=== PATIENT | female | born 1980 | race Caucasian/White ===

== ENCOUNTER 2024-04-04 07:44 | Day surgery (SDC) | payer BC, SELFPAY ==
[2024-04-04] VITALS (13 sets, daily range): BP systolic 93–120; BP diastolic 68–82; PULSE 62–100; RESP 14–16; TEMP 36.2–37; O2SAT 96–100; BMI 25.8
--- OUTSIDE RECORDS SUMMARY | 2024-04-04 07:48 | XMS_ITS | Clinical Summary ---
Author Organization [employer] [facility] [facility] Address [place], [place] [address] Care Team Providers Care Paid Search Marketing Strategist Name Role Phone Suyapa Adorno Primary Care Provider Allergies No known active allergies Medications fluticasone (50 mcg per actuation) nasal solution (FLONASE)Indicat ions:Allergic rhinitis, unspecified seasonality, unspecified trigger Inhale 1 [place] into affected nostril(s) once daily if needed for Rhinitis. 16 g 5 02/14/2024 5:31 PM DEVELOPMENT EXPERT 4 Active albuterol HFA (ProAir HFA) 90 mcg/actuation inhalerIndicatio ns:Bronchitis with bronchospasm Inhale 1-2 Puffs by mouth every 6 hours if needed for Wheezing 1st choice. 1 Each 4 Active albuterol (PROAIR RESPICLICK) 90 mcg/actuation INHALERIndicatio ns:SOB (shortness of breath) Inhale 1 Puff by mouth every 4 hours. 1 Inhaler 0 03/18/20 24 Discontinu ed(*Med complete/R egimen complete/L evel of care change) azithromycin (Zithromax Z-Nikhil) 250 mg tabletIndication s:Bronchitis with bronchospasm Take 500 mg (2 tabs) by mouth on day 1, then 250 mg (1 tab) daily for days 2-5. 6 Tablet 4 04/01/19 25 Discontinu ed(*Med complete/R egimen complete/L evel of care change) Active Problems Problem Noted Date Diagnosed Date Cervical cancer screening 02/23/2024 Overview (02/23/2024): 01/2024 NIL/HPV negative. Plan: Pap/HPV due 01/2029. Myopia of both eyes 09/30/2016 Resolved Problems Problem Noted Date Diagnosed Date Resolved Date Atypical nevi 10/13/2016 01/11/2023 Overview (10/13/2016): 10/12/16 right breast, lentiginous compound nevus moderate atypia, patient chose observation. 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 Johnson) 04/01/2024 Travel 03/18/2024 2:30 PM DEVELOPMENT EXPERT [facility] [address] [place] [address] Ramonita Santana PA Cough 03/18/2024 Travel 02/14/2024 7:55 AM DEVELOPMENT EXPERT Office Visit [facility] [place] [address] [place] [address] Elizabeth Urena NP Physical (fasting) 02/13/2024 Travel 02/07/2024 8:00 AM DEVELOPMENT EXPERT [facility] [address] [place] [address] Trinidad Johnson MD Consult (hemorrhoids) 02/06/2024 Travel 01/31/2024 9:40 AM DEVELOPMENT EXPERT Ancillary [facility] [address] [place] [address] 01/31/2024 Travel from Last 3 Months Immunizations Name Administration Dates Next Due COVID-19 vaccine (Infrafone NTech 30mcg/0.3mL) PF, MDV 04/30/2020,04/09/2020 DTaP 10/31/1984,04/28/1982 Influenza Virus, Unspecified 12/29/2014 Influenza, IIV4 01/03/2024, 3,12/31/2021,2020,12/18/2019,12/10/2018,11/24/2017,0 12/15/2016,01/11/2016,12/18/2015 MMR 09/09/1982,04/28/1982 Polio Virus, Unspecified 10/31/1984,04/28/1982 Td (Age >=7 Years) 05/30/2002 Tdap 09/01/2023,08/20/2013,09/13/2011 Typhoid (oral) 12/06/2017 Family History Medical History Relation Name Comments Cancer-prostate Father Dementia Father Hypertension Father Rheum arthritis Mother Thyroid cancer Mother GI Disease Paternal Aunt IBS Cancer-prostate Paternal Grandfather Heart Disease Paternal Grandfather Hypertension Paternal Grandmother Cancer-breast No Family History Relation Name Status Comments Brother 1 Alive Brother 2 Alive Father Maternal Grandfather Alive Maternal Grandmother Mother Paternal Aunt Paternal Grandfather Paternal Grandmother Sister Alive Social History Tobacco Use Types Packs/Day Years Used Date Smoking Tobacco: Former Cigarettes 0 04/20/2002 - 04/20/2010 Smokeless Tobacco: Never Tobacco Cessation:Counseling Given: Not Answered Alcohol Use Standard Drinks/Week Comments Yes 4 (1 standard drink = 0.6 oz pur e alcohol) PHQ-2 Answer Date Recorded PHQ-2 TOTAL SCORE 0 02/14/2024 Social Connections Answer Date Recorded Do you often feel lonely or isolated from those around you? 0 04/26/2023 Financial Resource Strain Answer Date R ecorded Difficulty of Paying Living Expenses 3 04/26/2023 Difficulty of Paying Living Expenses Not on file 04/26/2023 Food Insecurity Answer Date Recorded Do you worry your food will run out before you are able to buy more? 1 04/26/2023 Transportation Needs Answer Date Record ed Does lack of transportation keep you from medica l appointments? 1 04/26/2023 Does lack of transportation keep you from work, meetings or getting things that you need? 1 04/26/2023 Housing Stability Answer Date Recorded What is your housing situation today? 1 04/26/2023 Utilities Answer Date Recorded Do you have trouble paying f or utilities (for example, heat, electricity, water, phone)? 1 04/26/2023 Comments No Sex and Gender Information Value Date Recorded Sex Assigned at Not on file Legal Sex Female 5:25 AM DEVELOPMENT EXPERT Gender Identity Not on file Sexual Orientation Not on file Obstetrics History Para Term AB IAB SAB Ectopic Multiple Livin g Live Births 2 2 2 2 2 Date Outcome GA Total Labor Labor/2nd/3rd Weight Sex Type Anes PTL Ayana A1 A5 Name Clin Term Vag Living Term Vag Living Last Filed Vital Signs Vital Sign Reading Time Taken Comments Blood Pressure 111/77 04/01/2024 11:42 AM DEVELOPMENT EXPERT Pulse 74 04/01/2024 11:42 AM DEVELOPMENT EXPERT Temperature 36.6 C (97.9 F) 07/29/2021 11:43 AM CDT Respiratory Rate 18 09/02/2019 3:26 PM CDT Oxygen Saturation 99% 04/01/2024 11:42 AM DEVELOPMENT EXPERT Inhaled Oxygen Concentration - - Weight 72.6 kg (160 lb) 04/01/2024 11:42 AM DEVELOPMENT EXPERT Height 167.6 cm (5' 6) 04/01/2024 11:42 AM DEVELOPMENT EXPERT Body Mass Index 25.82 04/01/2024 11:42 AM DEVELOPMENT EXPERT Plan of Treatment Upcoming Encounters Date Type Department Care Team (Late st Contact Info) Description 04/04/2024 8:00 AM DEVELOPMENT EXPERT [facility] [address] [place] [address] Trinidad Johnson MD [address] [place] [address] Health Maintenance Due Date Last Done Comments Pneumococcal series for age 6-49 (1 of 2 - PCV) 11/26/1998 COVID-19 vaccine series ( - 2023- season) 2023 12/25/2020, 04/30/2020, 04/09/2020 Depression screening for age 12+ 02/13/2025 02/14/2024, 05/16/2019, 12/01/2017, Additional history exists BMI (ht and wt on same day) for age 18+ 04/01/2025 04/01/2024, 02/14/2024, 08/26/2019, Additional history exists Pap test for age 21-65 02/13/2029 , 02/14/2024, 01/25/2021, Additional history exists Tetanus booster 08/31/2033 09/01/2023, 06/0 05/2013, 09/13/2011, Additional history exists Tdap Completed 09/01/2023, 060 05/2013, 09/13/2011 Influenza for age 9-49 Completed , 02/02/2023, 12/31/2021, Additional history exists HIV for age 15-65 Completed 02/14/2024 Hepatitis C screening for ag e 18-79 Completed 02/14/2024 Procedures Procedure Name Priority Date/Time Associated Diagnosis Comments SOLAR ENERGY SYSTEMS ENGINEER THIN PREP PAP SCREEN IMAGED Routine 02/14/2024 8:20 AM DEVELOPMENT EXPERT Pap smear for cervical cancer screening HPV HIGH RISK Routine 02/14/2024 8:20 AM DEVELOPMENT EXPERT Pap smear for cervical cancer screening ANTI HIV 1/2 Routine 02/14/2024 8:17 AM DEVELOPMENT EXPERT Screening for HIV (human immunodeficiency virus) ANTI HCV Routine 02/14/2024 8:17 AM DEVELOPMENT EXPERT Need for hepatitis C screening test HEMOGLOBIN Routine 02/14/2024 8:17 AM DEVELOPMENT EXPERT Screening for deficiency anemia HEMOGLOBIN A1C Routine 02/14/2024 8:17 AM DEVELOPMENT EXPERT Diabetes mellitus screening LIPID PANEL W REFLEX MEASURED LDL Routine 02/14/2024 8:17 AM DEVELOPMENT EXPERT Lipid screening TSH WITH REFLEX Routine 02/14/2024 8:17 AM DEVELOPMENT EXPERT Thyroid disorder screen XR MAMMO ARI BILAT SCREEN Routine 01/31/2024 10:09 AM DEVELOPMENT EXPERT Routine adult health maintenance from Last 3 Months Results * SOLAR ENERGY SYSTEMS ENGINEER THIN PREP PAP SCREEN IMAGED (02/14/2024 8:20 AM DEVELOPMENT EXPERT) Case Report Gynecologic Cytology Report Case: [id number] Authorizing Provider: Elizabeth Urena NP Collected: 02/14/2024 0820 [facility] Received: 02/14/2024 0900 Clinic First Screen: Jaxon Marcum Specimen: SOLAR ENERGY SYSTEMS ENGINEER ThinPrep Vial Screening, Cervical 02/20/2024 1:17 PM DEVELOPMENT EXPERT [facility] INTERPRETATION/ RESULT NEGATIVE FOR INTRAEPITHELIAL LESION OR MALIGNANCY (NIL) (none) 02/20/2024 1:17 PM DEVELOPMENT EXPERT [facility]AL LAB[facility] IMEN ADEQUACY Satisfactory for evaluation Endocervical component present Scant cellularity 02/20/2024 1:17 PM DEVELOPMENT EXPERT [employer] ENTRAL LABORATORY HPV REQUEST HPV and PAP 02/20/2024 1:17 PM DEVELOPMENT EXPERT [facility] Date of LMP 01/31/2024 02/20/2024 1:17 PM DEVELOPMENT EXPERT [facility] Last Pap Date 01/25/21 02/20/2024 1:17 PM DEVELOPMENT EXPERT [facility] [employer] ENTRAL LABORATORY Last Pap Result NIL 1:17 PM DEVELOPMENT EXPERT [facility] ENTRAL LABORATORY Abnormal Pap or [place]emb[place] Bx in last 5 years No 02/20/2024 1:17 PM DEVELOPMENT EXPERT [facility] ENTRAL LABORATORY Menstrual Status Regular Periods 02/20/2024 1:17 PM DEVELOPMENT EXPERT [facility] ENTRAL LABORATORY Pembroke Bx Done Today No 02/20/2024 1:17 PM DEVELOPMENT EXPERT [facility] ENTRAL LABORATORY Additional Information None given 02/20/2024 1:17 PM DEVELOPMENT EXPERT [facility] [employer] ENTRAL LABORATORY Comment: Cytology is screened at [facility] [employer] [facility] Central Laboratory - [address], [place] [address] and [facility] - [address], [place] [address] and [facility] - [address] [place] [address] Interpreted at [facility] Laboratory - [address], [place] [address] Automated Review Successful 02/20/2024 1:17 PM DEVELOPMENT EXPERT [facility] ENTRUT LABORATORY Comment:Specimen processed s uccessfully by automated tire design engineer device, [employer] Imaging System, [employer] ANCILLARY TESTING SOLAR ENERGY SYSTEMS ENGINEER HPV Ordered, Please see separate report 02/20/2024 1:17 PM DEVELOPMENT EXPERT [facility] Note The pap test is a screening technique, not a diagnostic procedure. It is used primarily to screen for squamous cancers and precursor lesions. Published studies have shown that it is subject to both false negative and false positive results. The pap test should not be used as the sole means to diagnose or exclude pre-malignant and malignant lesions. 02/20/2024 1:17 PM DEVELOPMENT EXPERT [facility] ENTRUT LABORATORY Other (Cervical) Non-Blood / Unknown 02/14/2024 8:20 AM DEVELOPMENT EXPERT 02/14/2024 9:00 AM DEVELOPMENT EXPERT Elizabeth Urena NP PATHOLOGY/CYTOLOGY Final Result [facility] [address] [place] [address], * HPV HIGH RISK (02/14/2024 8:20 AM DEVELOPMENT EXPERT) TYPE 16 Negative Negative 02/19/2024 11:19 AM DEVELOPMENT EXPERT [facility] TRAL LABORATORY TYPE 18 Negative Negative 02/19/2024 11:19 AM DEVELOPMENT EXPERT [facility] OTHER HIGH RISK TYPES Negative Negative 02/19/2024 11:19 AM DEVELOPMENT EXPERT [facility] Other (Cervical) Non-Blood / Unknown 02/14/2024 8:20 AM DEVELOPMENT EXPERT 02/16/2024 10:14 AM DEVELOPMENT EXPERT Narrative [facility] - 02/19/2024 11:19 AM DEVELOPMENT EXPERT HPV types 16, 18, 31, 33, 35, 39, 45, 51, 52, 56, 58, 59, 66 and 68 DNA were undetectable or below the pre-set threshold. Methodology: The [employer] 4800 HPV Test Elizabeth Urena NP MICROBIOLOGY Final Res ult [facility] [address] [place] [id number], * HEMOGLOBIN A1C (02/14/2024 8:17 AM DEVELOPMENT EXPERT) HEMOGLOBIN A1C 5.3 <5.7 % of total Hgb [employer]es Comment: For the purpose of screening for the presence of diabetes: <5.7% Consistent with the absence of diabetes 5.7-6.4% Consistent with increased risk for diabetes (prediabetes) > or =6.5% Consistent with diabetes This assay result is consistent with a decreased risk of diabetes. Currently, no consensus exists regarding use of hemoglobin A1c for diagnosis of diabetes in children. According to [place] Diabetes Association (ADA) guidelines, hemoglobin A1c <7.0% represents optimal control in non- diabetic patients. Different metrics may apply to specific patient populations. Standards of Medical Care in Diabetes(ADA). Blood BLOOD SPECIMEN / Unknown 02/14/2024 8:17 AM DEVELOPMENT EXPERT 02/14/2024 8:17 AM DEVELOPMENT EXPERT Elizabeth Urena NP CHEMISTRY Final Res ult Performing Organization Address City/[facility]/ZIP Co de Phone Number [employer] [facility] [address] [place] [address], [facility] [address] [place] [address] * TSH WITH REFLEX (02/14/2024 8:17 AM DEVELOPMENT EXPERT) TSH W/REFLEX TO FT4 1.69 mIU/L [employer]ostics[employer] oBrges Comment: Reference Range > or = 20 Years 0.40-4.50 Ranges First trimester 0.26-2.66 Second trimester 0.55-2.73 Third trimester 0.43-2.91 Blood BLOOD SPECIMEN / Unknown 02/14/2024 8:17 AM DEVELOPMENT EXPERT 02/14/2024 8:17 AM DEVELOPMENT EXPERT Elizabeth Urena ROSTER CLERK CHEMISTRY Final Res ult Performing Organization Address City/[facility]/ZIP Co de Phone Number [employer] [facility] [address] [place] [address], [place] [phone] [facility] [address] [place] [address] * (ABNORMAL) LIPID PANEL W REFLEX MEASURED LDL (02/14/2024 8:17 AM DEVELOPMENT EXPERT) CHOLESTEROL, TOTAL 239(H) <200 mg/dL [facility] HDL CHOLESTEROL 83 > OR = 50 mg/dL [facility] TRIGLYCERIDES 134 <150 mg/dL [facility] LDL-CHOLESTEROL 131(H) mg/dL (calc) [facility] Comment: Reference range: <100 Desirable range <100 mg/dL for primary prevention; <70 mg/dL for patients with CHD or diabetic patients with > or = 2 CHD risk factors. LDL-C is now calculated using the Shay-Lashawn calculation, which is a validated novel method providing better accuracy than the Friedewald equation in the estimation of LDL-C. Shay SS et al. ARIS. 2013;310(19): 5237-0016 (http://education.GEN[employer] CEN[employer]S/faq/HHV489) CHOL/HDLC RATIO 2.9 <5.0 (calc) [facility] NON HDL CHOLESTEROL 156(H) <130 mg/dL (calc) [facility] Comment: For patients with diabetes plus 1 major ASCVD risk factor, treating to a non-HDL-C goal of <100 mg/dL (LDL-C of <70 mg/dL) is considered a therapeutic option. Blood BLOOD SPECIMEN / Unknown 02/14/2024 8:17 AM DEVELOPMENT EXPERT 02/14/2024 8:17 AM DEVELOPMENT EXPERT Elizabeth Urena ROSTER CLERK CHEMISTRY Final Res ult Performing Organization Address City/[facility]/ZIP Co de Phone Number [employer] [facility] [address] [facility] [place] [address], [place] [phone] [facility] [address] [place] [address] * ANTI HCV (02/14/2024 8:17 AM DEVELOPMENT EXPERT) HEPATITIS C ANTIBODY NON-REACTI VE NON-REACT LUIS [facility] Comment: HCV antibody was non-reactive. There is no laboratory evidence of HCV infection. In most cases, no further action is required. However, if recent HCV exposure is suspected, a test for HCV RNA (test code 00797) is suggested. For additional information please refer to http://education.Trak/faq/JJX39q3 (This link is being provided for informational/ educational purposes only.) Blood BLOOD SPECIMEN / Unknown 02/14/2024 8:17 AM DEVELOPMENT EXPERT 02/14/2024 8:17 AM DEVELOPMENT EXPERT us Elizabeth Urena ROSTER CLERK SEND OUTS Final Res ult [employer] [facility] [address] [facility] [place] [address], [place] [phone] [facility] [address] [place] [address] * HEMOGLOBIN (02/14/2024 8:17 AM DEVELOPMENT EXPERT) Pathologist [facility] HEMOGLOBIN 13.0 11.7 - 15.5 g/dL [facility] Blood BLOOD SPECIMEN / Unknown 02/14/2024 8:17 AM DEVELOPMENT EXPERT 02/14/2024 8:17 AM DEVELOPMENT EXPERT us Elizabeth Urena ROSTER CLERK HEMATOLOGY Final Res ult [facility] [address] [place] [address], [place] [phone] [facility] [address] [place] [address] * ANTI HIV 1/2 [58699.0] (02/14/2024 8:17 AM DEVELOPMENT EXPERT) HIV AG/AB, 4TH GEN NON-REACT LUIS NON-REACT LUIS [facility] [address] Comment: HIV-1 antigen and HIV-1/HIV-2 antibodies were not detected. There is no laboratory evidence of HIV infection. PLEASE NOTE: This information has been disclosed to you from records whose confidentiality may be protected by state law. If your state requires such protection, then the state law prohibits you from making any further disclosure of the information without the specific written consent of the person to whom it pertains, or as otherwise permitted by law. A general authorization for the release of medical or other information is NOT sufficient for this purpose. For additional information please refer to http://education.Trak/faq/WCR774 (This link is being provided for informational/ educational purposes only.) The performance of this assay has not been clinically validated in patients less than 2 years old. Blood BLOOD SPECIMEN / Unknown 02/14/2024 8:17 AM DEVELOPMENT EXPERT 02/14/2024 8:17 AM DEVELOPMENT EXPERT Elizabeth Urena ROSTER CLERK SEND OUTS Final Res ult [employer] [facility] [address] [place] [address], [facility] [address] [place] [address] * XR MAMMO ARI BILAT SCREEN (01/31/2024 10:09 AM DEVELOPMENT EXPERT) Anatomical Region Laterality Modality BREASTS, Breast Left, Breast Right Bilateral Mammography Impressions 01/31/2024 2:12 PM DEVELOPMENT EXPERT There is no radiographic evidence for malignancy. Recommend annual mammograms. MAMMOGRAM ASSESSMENT: ACR 1 Negative PATIENTS: You will also receive a letter with your examination results in an easy to read format. If you have questions about your results, please contact your referring provider. Narrative 01/31/2024 2:12 PM DEVELOPMENT EXPERT For Patients: As a result of the Century Cures Act, medical imaging exams and procedure reports are released immediately into your electronic medical record. You may view this report before your referring provider. If you have questions, please contact your health care provider. XR MAMMO ARI BILAT SCREEN [[id number]] CLINICAL HISTORY: This is an asymptomatic 43 y.o. patient. INDICATION FOR EXAM: Mammogram Screening. TECHNIQUE: CC & MLO views were obtained. This study was evaluated with the assistance of Computer-Aided Detection. Breast Tomosynthesis was used in interpretation. COMPARISON FILM: Yes 01/26/23 [facility] 02/04/22 [facility] FINDINGS: The breasts are heterogeneously dense, which may obscure small masses. There are no dominant masses, suspicious micro calcifications or areas of architectural distortion. us Suyapa LEAL MAMMO Final R esult from Last 3 Months Insurance [employer] [place] [address] Advance Directives Documents on File Type Date Recorded Patient Chicken Sexer Expl anation Healthcare Directive 12/01/2016 12:09 PM * Full Code (Latest Code Status on File) Date Activated Date Inactivated Comments 09/02/2019 5:55 AM 09/02/2019 7:41 PM Care Teams Paid Search Marketing Strategist Relationship Specialty Start Date End Date Suyapa Ad[place] [address] PCP - General Physician Medical Support Assistant 02/01/19
[2024-04-04] MEDS: SODIUM CHLORIDE 0.9 % (FLUSH) 10 ML SYRINGE IVF (08:31)
[2024-04-04] MEDS: 0.9 % SODIUM CHLORIDE 500 ML 500 ML 100 ML IV (08:32)
[2024-04-04] MEDS: CEFAZOLIN 2 GM INJ IVP (09:32)
--- NOTE | 2024-04-04 09:33 | P.ANES_ITS ---
Anesthesia Charges Start Date/Time Anesthesia Start Date: 04/04/24 Anesthesia Start Time: 09:17 Stop Date/Time Anesthesia Stop Date: 04/04/24 Anesthesia Stop Time: 10:07 Coding CPT Codes CPT Codes: ANESTH ANORECTAL SURGERY - 23012 ([id number]) P1 - NORMAL HEALTHY PATIENT, QK - RETAIL MERCHANDISING SPECIALIST 2-4 CNCRNT ANES PROC, QX - EMPLOYEE COMMUNICATIONS COORDINATOR SVMorelia W/ MED DIRECTION
--- NOTE | 2024-04-04 09:33 | W.ANESCHARGE ---
Anesthesia Charges Start Date/Time Anesthesia Start Date: 04/04/24 Anesthesia Start Time: 09:17 Stop Date/Time Anesthesia Stop Date: 04/04/24 Anesthesia Stop Time: 10:07 Coding CPT Codes CPT Codes: ANESTH ANORECTAL SURGERY - 42234 ([id number]) P1 - NORMAL HEALTHY PATIENT, QK - MACHINE CANDLE MOLDER 2-4 CNCRNT ANES PROC, QX - WILDLAND FIRE FIGHTER SVMorelia W/ MED DIRECTION
[2024-04-04] MEDS: BUPIVACAINE LIPOSOME 133 MG/10 ML INJ INFILTRATI (09:39)
[2024-04-04] MEDS: BUPIVACAINE 0.5% 30 ML INJECTION (09:39)
--- NOTE | 2024-04-04 10:01 | W.PM.H&PU ---
History & Physical Update History & Physical Update H&P Reviewed and patient assessed: No changes noted
--- NOTE | 2024-04-04 10:04 | P.GSOP_ITS ---
Operative Note Date of procedure: 04/04/24 Pre-op diagnosis: Perianal skin tag, internal hemorrhoids Post-op diagnosis: Same Type of Procedure: 1 quadrant hemorrhoidectomy Indications: Patient is a 43-year-old female who came to clinic with a symptomatic skin tag and associated internal hemorrhoids. Please see consultation note for full d iscussion. Risks and benefits of operative intervention were discussed at length with the patient. Risks included but was not limited to: Bleeding, infection, risk of damage to surrounding structures, possible need for additional procedures and postoperative complications such as pneumonia, pulmonary emboli or [place]. All questions and concerns were addressed with the patient agreeing to proceed. Procedure Description: After discussing the risks and benefits of the procedure, the patient signed informed consent.? The operative site was marked and the patient was brought to the operating room. A spinal anesthetic was placed by anaesthesia. Patient was then positioned prone agusto-knife.? Care was taken to pad the patient's pressure points.?? The patient was then given sedation by anesthesia.?? The operative site was then prepped and draped in the usual sterile fashion.? A time-out was then performed. External examination, digital rectal examination, and anoscopic examination were all done and revealed significantly redundant internal hemorrhoidal tissue in the posterior midline aspect of the anal canal with a large associated residual hemorrhoidal skin tag. Based on this assessment, plans were made for a single- quadrant closed hemorrhoidectomy to encompass the aforementioned aspects of the anal canal. An elliptical incision was made with a needle tip electrocautery from the anoderm up into the anal canal just above the dentate line. Careful dissection of the hemorrhoid complex was done in the plane between the internal anal sphincter and the submucosal vascular plexus up to just above the dentate line in each quadrant described above. Having established the proper plane, the hemorrhoidal tissue was then excised with the Ligasure device and sent to Pathology for analysis. Care was taken to preserve mucosa for a tension-free closure. The internal sphincter fibers were visualized at the base of the wound and were intact. The wound was closed in a running locked manner starting at the apex (proximal aspect of elliptical excision) with 4-0 chromic suture, coming out to the anoderm and then running back up in a simple fashion and tying down at the apex. Hemostasis was excellent. A mixture of Exparel and 0.5% Marcaine was then used to anesthetize the area. A bilateral pudendal block was performed. The patient tolerated procedure well. There were no apparent complications. Instrument, sponge, and needle counts were correct at the end of the case. Findings: Large perianal skin tag posterior midline. Redone internal hemorrhoidal tissue posterior midline. Anesthesia: local and spinal Surgeon: Trinidad Johnson MD Estimated blood loss (mL): 5 Additional Specimen Information: Hemorrhoidal tissue Condition: stable Disposition: PACU
--- NOTE | 2024-04-04 10:09 | W.ANESCHARGE ---
Anesthesia Charges Start Date/Time Anesthesia Start Date: 04/04/24 Anesthesia Start Time: 09:17 Stop Date/Time Anesthesia Stop Date: 04/04/24 Anesthesia Stop Time: 10:07 Coding CPT Codes CPT Codes: ANESTH ANORECTAL SURGERY - 34454 ([id number]) QK - FOOD CART ATTENDANT 2-4 CNCRNT ANES PROC, QX - SEROLOGY TECHNICIAN SVC W/ MD MED DIRECTION, P1 - NORMAL HEALTHY PATIENT
--- NOTE | 2024-04-04 10:09 | P.ANES_ITS ---
Anesthesia Charges Start Date/Time Anesthesia Start Date: 04/04/24 Anesthesia Start Time: 09:17 Stop Date/Time Anesthesia Stop Date: 04/04/24 Anesthesia Stop Time: 10:07 Coding CPT Codes CPT Codes: ANESTH ANORECTAL SURGERY - 33764 ([id number]) QK - VICE PRESIDENT OF OPERATIONS 2-4 CNCRNT ANES PROC, QX - BLOOD OR BLOOD BANK TECHNICIAN SVC W/ MD MED DIRECTION, P1 - NORMAL HEALTHY PATIENT
--- NOTE | 2024-04-04 10:11 | SUR.PHASEI ---
Patient arrived in PACU awake and talking. She stated no pain or nausea. She is able to move legs and feet. Pedal pulses are present. Declining ice chips. Comfortable and talkative
--- NOTE | 2024-04-04 10:27 | SUR.PHASEI ---
Patient meets discharge criteria from PACU. Oxygen and pain medication not needed in PACU
[2024-04-04] MEDS: HYDROCODONE-ACETAMIN 5-325 MG 1 TAB PO (11:54)
== END 2024-04-04 12:15 | disposition home or self-care (01) ==
PROVIDERS: PCP Physician Assistant Medical; Visit Provider Surgery
PROC: (CPT 46255; principal; 2024-04-04 09:00)
DX: K64.8 Other hemorrhoids (principal); K64.4 Residual hemorrhoidal skin tags
CPT/HCPCS: 46255; 00902; 88304; A9270; J0665; J0666; J0690; J1100; J1885; J2250; J2405; J2704; J3010; J7030